=== PATIENT | male | born 1970 | race Asian ===

== ENCOUNTER 2023-06-26 07:33 | Emergency (ER) | payer OTHER ==
[~2023-06-26] VITALS: Ht 167.6 cm; Wt 77.1 kg
[2023-06-26 07:38] VITALS: BP_SYST 109; PULSE 78; RESP 18; TEMP 96.4; O2SAT 97
[2023-06-26] MEDS ORDERED: PANTOPRAZOLE SODIUM 40 MG/VIAL (PROTONIX) ONE (08:21)
[2023-06-26 08:22] LABS: BASOPHILS % (AUTO) 0.4 % (0.0-2.0); EOSINOPHILS # (AUTO) 0.1 K/uL (0.0-0.4); EOSINOPHILS % (AUTO) 1.7 % (0.0-4.0); HEMATOCRIT 38.5 % (36-54); HEMOGLOBIN 12.8 g/dL (14.0-18.0); LYMPHOCYTES # (AUTO) 1.7 K/uL (1.0-5.5); LYMPHOCYTES % (AUTO) 22.7 % (20.5-51.5); MEAN CORPUSCULAR HEMOGLOBIN 30 pg (27-31); MEAN CORPUSCULAR HGB CONC 33 % (32-36); MEAN CORPUSCULAR VOLUME 90 fL (79.0-98.0); MONOCYTES # (AUTO) 0.4 K/uL (0.0-1.0); MONOCYTES % (AUTO) 5.1 % (1.7-9.3); NEUTROPHILS # (AUTO) 5.1 K/uL (1.8-7.7); NEUTROPHILS % (AUTO) 70.1 % (40.0-70.0); PLATELET COUNT (AUTO) 152 K/uL (130-430); RED CELL DISTRIBUTION WIDTH 13.8 % (9.0-15.0); WHITE BLOOD COUNT (AUTO) 7.3 K/uL (4.8-10.8)
[2023-06-26] MEDS: PANTOPRAZOLE SODIUM 80 MG in NS 100 ML IV ONE (08:30)
[2023-06-26 08:32] LABS: CALCIUM 8.1 mg/dL (8.4-11.0); CREATININE 1.02 mg/dL (0.55-1.30); POTASSIUM 3.8 mmol/L (3.5-5.1)
[2023-06-26 09:06] LABS: PROTHROMBIN TIME 10.3 SECS (9.5-12.5)
[2023-06-26] MEDS: NACL 0.9% 1,000 ML IV ONE (11:29)
[2023-06-26 12:22] VITALS: BP_SYST 148; PULSE 79; RESP 19; TEMP 98; O2SAT 98
== END 2023-06-26 12:19 | disposition short-term general hospital (02) ==
LOC: SED 07:33
DX: K92.2 Gastrointestinal hemorrhage, unspecified (principal); R55 Syncope and collapse; Z79.899 Other long term (current) drug therapy
CPT/HCPCS: 99285; 70450; 96365; 71045; 96361; 80048; 83880; 85025; 85610; 85730; 86886; 86900; 86901; 84484; 36415; 93005; 74176; C9113; J7030